=== PATIENT | female | born 1975 | race Caucasian/White ===

== ENCOUNTER 2024-12-15 08:40 | Outpatient (CLI) | payer OTHER | END 2024-12-15 08:53 | disposition home or self-care (01) | LOC: RAD 08:40 | DX: M77.51 Other enthesopathy of right foot and ankle (principal) ==

== ENCOUNTER 2024-12-23 08:17 | Outpatient (CLI) | payer OTHER | END 2024-12-23 08:28 | disposition home or self-care (01) | LOC: RAD 08:17 | DX: M20.092 Other deformity of left finger(s) (principal) ==